=== PATIENT | female | born 1985 | race Caucasian/White ===

== ENCOUNTER 2025-01-11 10:01 | Emergency (ER) | payer OTHER ==
[~2025-01-11] VITALS: Ht 172.7 cm; Wt 90.7 kg
[2025-01-11] MEDS ORDERED: AMOX-430 PO (10:30)
[2025-01-11] MEDS ORDERED: FLUT16SP16 BNOSTRILS (10:30)
[2025-01-11 10:40] VITALS: BP 145/87; TEMP 98.5; O2SAT 98
== END 2025-01-11 10:41 | disposition home or self-care (01) ==
LOC: ER 10:09
DX: H66.91 Otitis media, unspecified, right ear (principal)